=== PATIENT | female | born 1965 | race Two or more races ===

== ENCOUNTER 2017-09-26 15:33 | Inpatient (IN) | payer OTHER ==
[2017-09-26 19:39] VITALS: BMI 38.0
[2017-09-26] MEDS ORDERED: NITROGLYCERIN SL TABS 0.4 MG TAB SUBLINGUAL PRN (20:03)
[2017-09-26] MEDS ORDERED: Acetaminophen-Codeine 300-30mg TAB PO PRN (20:08)
[2017-09-26 20:57] LABS: Creatine Kinase 61 U/L (30-135)
[2017-09-26 21:10] LABS: Creatine Kinase MB 0.6 ng/mL (0.0-2.4); Troponin I <0.012 ng/mL (0.000-0.034)
[2017-09-26] MEDS: PANTOPRAZOLE 40 MG/10 ML VIAL IVP SCH (21:20)
[2017-09-26] MEDS: Acetaminophen-Codeine 300-30mg TAB PO PRN (21:25)
[2017-09-27 03:09] LABS: Cholesterol 173 mg/dL (<200); HDL Cholesterol 32 mg/dL (40-60); LDL Cholesterol,Calculated 122 mg/dL (0-99); Triglycerides 95 mg/dL (<150)
[2017-09-27 03:27] LABS: Creatine Kinase MB 0.7 ng/mL (0.0-2.4); Troponin I 0.026 ng/mL (0.000-0.034)
--- NOTE | 2017-09-27 08:40 | P.CRDCN ---
History of Present Illness Consult date: 09/27/17 Chief complaint: Chest pain History of present illness: This is a pleasant 52-year-old female patient with no history of coronary artery disease or diabetes or hypertension or dyslipidemia but history of stroke at young age [place] to have left sided weakness, was transferred from [facility] to [facility] for further evaluation of chest discomfort. The patient was in her usual state of health when she was sitting in the car when she started experiencing discomfort in the chest with some radiation to the back. She described the discomfort as a stabbing kind of discomfort. It did also radiated to her neck and to her jaw. The patient states clearly that the discomfort is worse once she take a deep breath. Also she stated that the discomfort sometimes precipitated by moving the neck right and left. No associated symptoms of shortness of breath, sweating, nausea or vomiting, dizziness or lightheadedness or syncope. She presented to the emergency room went [facility] where she was given nitroglycerin without improvement in her symptoms but with significant drop in the blood pressure. The patient EKG showed sinus rhythm with intraventricular conduction delay. The EKG also consistent with LVH. 2 sets of cardiac enzymes were obtained and came in to be unremarkable. I don't have a chest x-ray on her. The d-dimer came in to be elevated and the computed tomography scan of the chest showed no PE. The patient does not have any coronary artery disease, diabetes, hypertension, or dyslipidemia. No major cardiovascular surgery. She does not smoke or drink alcohol. She has no family history of coronary artery disease. 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" History of Any Multi-Drug Resistant Organisms: None Reported Past Surgical History: Hysterectomy, Tubal Ligation Additional Past Surgical History / Comment(s): eye surgery Past Anesthesia/Blood Transfusion Reactions: No Reported Reaction Past Psychological History: Depression Smoking Status: Never smoker Past Alcohol Use History: None Reported Past Drug Use History: None Reported Medications and Allergies Home Medications Medication Instructions Recorded Confirmed Type Acetaminophen-Codeine 300-30mg 30 mg PO BID PRN 09/26/17 09/26/17 History [Tylenol w/codeine #3] Escitalopram [Lexapro] 10 mg PO DAILY 09/26/17 09/26/17 History Esomeprazole Magnesium [NexIUM] 40 mg PO DAILY 09/26/17 09/26/17 History Ibuprofen [Motrin] 800 mg PO Q6HR PRN 09/26/17 09/26/17 History Levothyroxine Sodium [Synthroid] 50 mcg PO DAILY 09/26/17 09/26/17 History Allergies Allergy/AdvReac Type Severity Reaction Status Date / Time Penicillins AdvReac Unknown Verified 09/26/17 19:40 Physical Exam Vitals: Vital Signs Temp Pulse Resp BP Pulse Ox 09/27/17 03:24 73 19 09/27/17 03:23 98.7 F 73 19 118/77 96 09/26/17 23:35 84 16 09/26/17 23:33 98.8 F 84 16 111/57 96 09/26/17 20:00 98.9 F 80 17 113/78 95 09/26/17 19:28 98.9 F 80 17 113/78 95 Intake and Output 09/26/17 09/27/17 09/27/17 22:59 06:59 14:59 Other: Voiding Method Toilet Toilet # Voids 1 1 Weight 106.8 kg 100 kg - Constitutional General appearance: no acute distress - Respiratory Respiratory: bilateral: CTA - Cardiovascular Rhythm: regular Heart sounds: normal: S1, S2 Results Cardiac Enzymes 09/26/17 09/27/17 Range/Units 20:29 02:32 CK-MB (CK-2) 0.6 0.7 (0.0-2.4) ng/mL Troponin I <0.012 0.026 (0.000-0.034) ng/mL Lipids 09/27/17 Range/Units 02:32 Triglycerides 95 (<150) mg/dL Cholesterol 173 (<200) mg/dL HDL Cholesterol 32 L (40-60) mg/dL Current Medications Generic Name Dose Route Start Last Admin Trade Name Freq PRN Reason Stop Dose Admin Acetaminophen/Codeine Phosphate 1 each 09/26/17 21:22 09/26/17 21:25 Tylenol #3 PO 1 each Q12HR PRN Administration Pain Morphine Sulfate 4 mg 09/26/17 20:03 Morphine Sulfate (Inj) IV Q5M PRN MOD-SEV CHEST PAIN Nitroglycerin 0.4 mg 09/26/17 20:03 Nitrostat SUBLINGUAL Q5M PRN Chest Pain Pantoprazole Sodium 40 mg 09/26/17 20:15 09/26/17 21:20 Protonix IVP 40 mg DAILY ANAHI Administration Intake and Output 09/26/17 09/27/17 09/27/17 22:59 06:59 14:59 Other: Voiding Method Toilet Toilet # Voids 1 1 Weight 106.8 kg 100 kg Assessment and Plan Assessment: Assessment #1 atypical/pleuritic chest discomfort. #2 history of stroke in the past causing left sided weakness Plan #1 PE was ruled out by a computed tomography scan of the chest. #2 pericarditis to be ruled out as well. I will obtain an echocardiogram to assess for pericardial effusion giving the nature of the pain which is pleuritic #3 also primary problem like degenerative disease in the neck could be responsible for the pain. I will obtain the x-ray #4 the patient was ruled out for acute coronary event as well #5 if the workup came in to be negative she might benefit from a stress test either as an inpatient or an outpatient. Thank you for allowing us participate in her care and we will continue following up with her
[2017-09-27] MEDS: PANTOPRAZOLE 40 MG/10 ML VIAL IVP SCH (08:54)
[2017-09-27 09:16] LABS: Creatine Kinase MB 0.6 ng/mL (0.0-2.4); Troponin I 0.013 ng/mL (0.000-0.034)
[2017-09-27] MEDS ORDERED: DILTIAZEM DRIP BOLUS FROM BAG 1 MG SOLN IV ONE (09:22)
[2017-09-27] MEDS ORDERED: DILTIAZEM 50 MG in SODIUM CHLORIDE 0.9% 40 ML IV SCH (09:30)
--- NOTE | 2017-09-27 11:26 | P.HPIM ---
History of Present Illness H&P Date: 09/27/17 Chief Complaint: Chest pain Patient is a 52-year-old female with a known history of with a known history of hypothyroidism, anxiety/depression, neuropathy, hypertension, GERD and history of degenerative disc disease was initially presented to [facility] with complaints of midsternal chest pain shooting sharp pain radiating to the neck jar and to the back. Patient says that she's not been feeling very weak for the last 2 days prior to admission and has been more sleepy. She felt some nausea but no episodes of vomiting. No headache or dizziness or lightheadedness. Chest pain gets worse when she takes deep breath. EKG showed sinus rhythm with frequent PVCs. Poor R wave progression anterior leads. QTC 411. No ST elevation or depression. Troponin less than 0.017 D-dimer slightly elevated at 1 CT angiogram of the chest showed no PE. Elevated right hemidiaphragm with right base atelectasis. Atelectasis and some degree of patchy infiltrate noted involving the left lower lobe and lingula area and paraesophageal hernia. x-ray showed no acute abnormality UA negative. Sodium 136 potassium 3.3 BNP 26 creatinine 1.2 bilirubin 1.3 BNP 1242 Patient went to atrial fibrillation with rapid return in this morning and was started on Cardizem drip currently. All other laboratory data from [facility] was reviewed. Review of Systems Constitutional: Patient denies any fever or chills . No generalized weakness or weight loss. Abdomen: Patient denied nausea vomiting and diarrhea and abdominal pain. Cardiovascular: Patient does have pleuritic chest pain. No palpitations. No leg swelling.. Respiratory: patient denied any cough is from production. No shortness of breath Neurologic: Patient denied any numbness or tingling headache. Musculoskeletal: Patient denies any complaints of joint swelling or deformity. Skin: Negative Psychiatric: Negative Endocrine: No heat or cold intolerance. No recent weight gain. Genitourinary: No dysuria or hematuria. 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" History of Any Multi-Drug Resistant Organisms: None Reported Past Surgical History: Hysterectomy, Tubal Ligation Additional Past Surgical History / Comment(s): eye surgery Past Anesthesia/Blood Transfusion Reactions: No Reported Reaction Past Psychological History: Depression Smoking Status: Never smoker Past Alcohol Use History: None Reported Past Drug Use History: None Reported Medications and Allergies Home Medications Medication Instructions Recorded Confirmed Type Acetaminophen-Codeine 300-30mg 30 mg PO BID PRN 09/26/17 09/26/17 History [Tylenol w/codeine #3] Escitalopram [Lexapro] 10 mg PO DAILY 09/26/17 09/26/17 History Esomeprazole Magnesium [NexIUM] 40 mg PO DAILY 09/26/17 09/26/17 History Ibuprofen [Motrin] 800 mg PO Q6HR PRN 09/26/17 09/26/17 History Levothyroxine Sodium [Synthroid] 50 mcg PO DAILY 09/26/17 09/26/17 History Allergies Allergy/AdvReac Type Severity Reaction Status Date / Time Penicillins AdvReac Unknown Verified 09/26/17 19:40 Physical Exam Vitals: Vital Signs Temp Pulse Resp BP Pulse Ox 09/27/17 08:00 98.8 F 86 18 134/80 09/27/17 03:24 73 19 09/27/17 03:23 98.7 F 73 19 118/77 96 09/26/17 23:35 84 16 09/26/17 23:33 98.8 F 84 16 111/57 96 09/26/17 20:00 98.9 F 80 17 113/78 95 09/26/17 19:28 98.9 F 80 17 113/78 95 Intake and Output 09/26/17 09/27/17 09/27/17 22:59 06:59 14:59 Other: Voiding Method Toilet Toilet Toilet # Voids 1 1 Weight 106.8 kg 100 kg PHYSICAL EXAMINATION: Patient is lying in the bed comfortably, no acute distress, awake alert and oriented.. HEENT: Normocephalic. Neck is supple. Pupils reactive. Nostrils clear. Oral cavity is moist. Ears reveal no drainage. Neck reveals no JVD, carotid bruits, or thyromegaly. CHEST EXAMINATION: Trachea is central. Symmetrical expansion. Bibasilar diminished air entry. Lung armijo clear to auscultation and percussion. CARDIAC: Normal S1, S2 with no gallops. No murmurs ABDOMEN: Soft. Bowel sounds normal. No organomegaly. No abdominal bruits. Extremities: reveal no edema. No clubbing or cyanosis Neurologically awake, alert, oriented x3 with well-coordinated movements. No focal deficits noted Skin: No rash or skin lesions. Psychiatric: Coperative. Nonsuicidal Musculoskeletal: No joint swelling or deformity. Normal range of motion. Results Labs: Abnormal Lab Results - Last 24 Hours (Table) 09/27/17 Range/Units 02:32 LDL Cholesterol, Calc 122 H (0-99) mg/dL HDL Cholesterol 32 L (40-60) mg/dL Thrombosis Risk Factor Assmnt - Choose All That Apply Any of the Below Risk Factors Present?: Yes Each Factor Represents 1 point: Age 41-60 years, Obesity (BMI >25) Other Risk Factors: No Other congenital or acquired thrombophilia - If yes, enter type in comment: No Thrombosis Risk Factor Assessment Total Risk Factor Score: 2 Thrombosis Risk Factor Assessment Level: Low Risk Assessment and Plan Assessment: Pleuritic chest pain. pulmonary embolism ruled out. 2-D echocardiogram was ordered for possible pericarditis Atrial fibrillation with rapid ventricular rate. New-onset. Right basilar atelectasis and atelectasis and some degree of patchy infiltrate involving the left lower lobe and lingula as per CT chest Hypothyroidism. Noncompliance with medications. We will check TSH and free T4 level History of CVA with left-sided weakness Hypertension. Controlled Anxiety/depression Peripheral neuropathy. Nondiabetic GERD cervical degenerative disc disease Plan: Patient will be continued on telemetry monitoring. Patient was started on Cardizem drip. Serial troponins negative. 2-D echocardiogram was ordered to assess for LV function as well as pericarditis. We'll check TSH and free T4 level. cardiology is following. If the workup is negative patient will need stress test as an inpatient or outpatient. Incentive spirometry. Continue to follow closely and further recommendations based on the clinical course. Time with Patient: Greater than 30
[2017-09-27] MEDS: METOPROLOL TARTRATE 25 MG TAB PO SCH ×2 (16:40→20:29)
--- NOTE | 2017-09-27 20:06 | XR ---
EXAMINATION TYPE: XR chest 1V DATE OF EXAM: 09/27/2017 COMPARISON: NONE HISTORY: 52-year-old female with chest pain TECHNIQUE: Single frontal view of the chest is obtained. FINDINGS: Low lung volumes with crowded vascular markings. Strandy bibasilar densities. Possible trace left eff usion. Visualized upper lungs are clear. Heart likely upper limits of normal in size. IMPRESSION: Exam limited due to low lung volumes. Bibasilar densities likely areas of atelectasis. Trace left eff usion or developing infiltrate difficult to exclude at this time. Consider repeat inspiratory view.
--- NOTE | 2017-09-27 20:08 | XR ---
EXAMINATION TYPE: XR cervical spine DATE OF EXAM: 09/27/2017 COMPARISON: NONE HISTORY: 52-year-old female with neck pain TECHNIQUE: 3 views FINDINGS: No predental space widening or prevertebral soft tissue swelling. Moderate spondylotic change C5-C7 l evels with endplate spurring. Scattered facet and uncovertebral joint degenerative change. Degenerati ve joint space narrowing along the C1-C2 left lateral masses. Alignment is maintained. IMPRESSION: Moderate spondylotic changes especially from C5 through C7 levels. Additional degenerative changes al marge the C1-C2 left lateral masses. No malalignment.
[2017-09-27] MEDS: MORPHINE SULFATE 2 MG/ML SYRINGE IV PRN (21:05)
[2017-09-28] MEDS: MORPHINE SULFATE 2 MG/ML SYRINGE IV PRN (05:13)
[2017-09-28 06:31] LABS: Basophils % (A) 1 %; Eosinophils # (A) 0.2 k/uL (0-0.7); Eosinophils % (A) 3 %; HCT 37.2 % (34.0-46.0); HGB 12.6 gm/dL (11.4-16.0); Lymphocytes # (A) 0.9 k/uL (1.0-4.8); Lymphocytes % (A) 17 %; MCH 30.1 pg (25.0-35.0); MCHC 33.9 g/dL (31.0-37.0); MCV 88.8 fL (80.0-100.0); Monocytes # (A) 0.4 k/uL (0-1.0); Monocytes % (A) 8 %; Neutrophils # (A) 3.7 k/uL (1.3-7.7); Neutrophils % (A) 69 %; Platelet Count 189 k/uL (150-450); RBC 4.19 m/uL (3.80-5.40); RDW 13.7 % (11.5-15.5); WBC 5.4 k/uL (3.8-10.6)
[2017-09-28 06:36] LABS: Anion Gap 9 mmol/L; Blood Urea Nitrogen 26 mg/dL (7-17); Calcium 8.5 mg/dL (8.4-10.2); Carbon Dioxide 27 mmol/L (22-30); Chloride 99 mmol/L (98-107); Glucose 106 mg/dL (74-99); Potassium 3.7 mmol/L (3.5-5.1); Sodium 135 mmol/L (137-145)
[2017-09-28] MEDS: PANTOPRAZOLE 40 MG TABLET PO SCH (06:54)
--- NOTE | 2017-09-28 11:12 | P.PN ---
Subjective Progress Note Date: 09/28/17 This is a pleasant 52-year-old female with known history of coronary artery disease, no diabetes, no hypertension, no hyperlipidemia, she does have history of stroke at a young age with some mild left-sided weakness. She was initially transferred from [facility] here with symptoms of chest discomfort. She describes her discomfort as a sharp stabbing pain, gets significantly worse upon taking a deep breath. EKG showed a normal sinus rhythm with intraventricular conduction delay and LVH strain pattern. Cardiac enzymes and troponins were negative. D-dimer was also found to be elevated and the CT of the chest was negative for pulmonary embolism. An echocardiogram with Doppler study was performed this morning which is yet pending. At the time of my examination this morning, patient is complaining of generalized aches and pains in her legs arms, complains only of sharp chest pain when she takes a very deep breath. She is also running low-grade temperatures of 100.1 this morning. We will review her echocardiogram with Doppler study, if there is no evidence of effusion to suggest pericarditis we would recommend a stress test however in view of the fact the patient currently is running fevers we would recommend this be performed as an outpatient. This was also explained to the patient in detail this morning. Objective - Vital Signs Vital signs: Vital Signs Temp 99.4 F 09/28/17 08:00 Pulse 78 09/28/17 08:00 Resp 16 09/28/17 08:00 BP 113/61 09/28/17 08:00 Pulse Ox 91 L 09/28/17 08:00 Intake & Output 09/27/17 09/28/17 09/28/17 18:59 06:59 18:59 Intake Total 473 300 240 Output Total 200 Balance 473 100 240 Weight 100.607 kg Intake: Oral 473 300 240 Output: Urine 200 Other: Voiding Method Toilet Toilet # Voids 1 200 - Exam PHYSICAL EXAMINATION: GENERAL: 52-year-old female generally complaining of aches and pains in legs and arms this morning HEENT: Head is atraumatic, normocephalic. Pupils equal, round. Sclera anicteric. Conjunctiva are clear. Mucous membranes of the mouth are moist. Neck is supple. There is no elevated jugular venous pressure.] No carotid bruit is heard. HEART EXAMINATION: Heart S1, S2 normal. No murmur or gallop heard. CHEST EXAMINATION: Lungs are clear to auscultation and precussion. Positive chest wall tenderness is noted on palpation and with deep breathing.] ABDOMEN: [Soft, nontender. Bowel sounds are heard. No organomegaly noted] EXTREMITIES:[2+ peripheral pulses with no evidence of peripheral edema and no calf tenderness noted] NEUROLOGIC [atient is awake, alert and oriented ?-3.] . - Labs CBC & Chem 7: 09/28/17 05:42 09/28/17 05:42 Labs: Abnormal Lab Results - Last 24 Hours (Table) 09/28/17 09/28/17 Range/Units 05:42 05:42 Lymphocytes # 0.9 L (1.0-4.8) k/uL Sodium 135 L (137-145) mmol/L BUN 26 H (7-17) mg/dL Glucose 106 H (74-99) mg/dL Assessment and Plan Plan: Assessment and plan #1 atypical chest pain, troponins negative 3. EKG does not show any significant changes. CTA of the chest negative for pulmonary embolism #2 history of stroke #3 fever with generalized body aches Plan We will review the echocardiogram with Doppler study. If there is no evidence of effusion, we would recommend the patient undergo stress testing as an outpatient. DNP note has been reviewed, I agree with a documented findings and plan of care. Patient was seen and examined.
[2017-09-28] MEDS: METOPROLOL TARTRATE 25 MG TAB PO SCH ×2 (12:28→20:23)
[2017-09-28] MEDS: Acetaminophen-Codeine 300-30mg TAB PO PRN (12:38)
[2017-09-28] MEDS ORDERED: LEVOFLOXACIN 500MG-D5W PMX 500 MG in DEXTROSE/WATER 1 100ML.BAG IVPB SCH (15:00)
[2017-09-28] MEDS: HEPARIN SODIUM,PORCINE 5,000 UNIT/ML 1 ML VIAL SQ SCH ×2 (16:05→23:22)
--- NOTE | 2017-09-28 17:22 | ECHOF ---
Referral Reason:cp MEASUREMENTS -------- HEIGHT: 167.6 cm WEIGHT: 100.2 kg BP: 120/3 IVSd: 1.3 cm (0.6 - 1.1) LVIDd: 2.9 cm (3.9 - 5.3) LVPWd: 1.3 cm (0.6 - 1.1) IVSs: 1.7 cm LVIDs: 1.9 cm LVPWs: 1.7 cm LA Diam: 2.6 cm (2.7 - 3.8) RVIDd: 2.8 cm (< 3.3) LAESV Index (A-L): 16.46 ml/m Ao Diam: 3.2 cm (2.0 - 3.7) AV Cusp: 2.0 cm (1.5 - 2.6) EPSS: 0.6 cm MV E Kentrell: 0.81 m/s MV DecT: 211 ms MV A Kentrell: 0.68 m/s MV E/A Ratio: 1.20 RAP: 5.00 mmHg RVSP: 26.36 mmHg MV EF SLOPE: 57.13 mm/s (70 - 150) MV EXCURSION: 14.88 mm (> 18.000) FINDINGS -------- Sinus rhythm. This was a technically adequate study. The left ventricular size is normal. There is mild concentric left ventricular hypertrophy. Overa ll left ventricular systolic function is normal with, an EF between 55 - 60 %. The right ventricle is normal in size. Normal LA size by volume 22+/-6 ml/m2. The right atrium is normal in size. There is mild aortic valve sclerosis. Mild mitral annular calcification present. There is trace to mild mitral regurgitation. Mild tricuspid regurgitation present. Right ventricular systolic pressure is normal at < 35 mmHg. Trace/mild (physiologic) pulmonic regurgitation. The aortic root size is normal. IVC Not well visulized. There is no pericardial effusion. CONCLUSIONS -------- 1. Sinus rhythm. 2. This was a technically adequate study. 3. The left ventricular size is normal. 4. There is mild concentric left ventricular hypertrophy. 5. Overall left ventricular systolic function is normal with, an EF between 55 - 60 %. 6. The right ventricle is normal in size. 7. Normal LA size by volume 22+/-6 ml/m2. 8. The right atrium is normal in size. 9. There is mild aortic valve sclerosis. 10. Mild mitral annular calcification present. 11. There is trace to mild mitral regurgitation. 12. Mild tricuspid regurgitation present. 13. Right ventricular systolic pressure is normal at < 35 mmHg. 14. Trace/mild (physiologic) pulmonic regurgitation. 15. The aortic root size is normal. 16. IVC Not well visulized. 17. There is no pericardial effusion. SERVICE LINE COORDINATOR: Autumn Samuel RDCS
[2017-09-28] MEDS ORDERED: ACETAMINOPHEN TAB 500 MG TAB PO STA (20:32)
--- NOTE | 2017-09-28 22:24 | P.PN ---
Subjective Progress Note Date: 09/28/17 Principal diagnosis: Pleuritic chest pain and pneumonia Patient is a 52-year-old female with a known history of with a known history of hypothyroidism, anxiety/depression, neuropathy, hypertension, GERD and history of degenerative disc disease was initially presented to [facility] with complaints of midsternal chest pain shooting sharp pain radiating to the neck jar and to the back. Patient says that she's not been feeling very weak for the last 2 days prior to admission and has been more sleepy. She felt some nausea but no episodes of vomiting. No headache or dizziness or lightheadedness. Chest pain gets worse when she takes deep breath. EKG showed sinus rhythm with frequent PVCs. Poor R wave progression anterior leads. QTC 411. No ST elevation or depression. Troponin less than 0.017 D-dimer slightly elevated at 1 CT angiogram of the chest showed no PE. Elevated right hemidiaphragm with right base atelectasis. Atelectasis and some degree of patchy infiltrate noted involving the left lower lobe and lingula area and paraesophageal hernia. x-ray showed no acute abnormality UA negative. Sodium 136 potassium 3.3 BNP 26 creatinine 1.2 bilirubin 1.3 BNP 1242 Patient had brief episode of rapid irregular rhythm. Patient was on Cardizem drip and is currently maintaining sinus rhythm. 09/28/2017 Patient is still complaining of shortness of breath and developed fever last night. Still having pleuritic chest pain with deep breathing. Patient was started on antibiotics for possible left lower lobe pneumonia. Repeat chest x- ray showed low lung volumes. Bibasilar densities likely areas of atelectasis. trace left pleural effusion or developing an infiltrate difficult to exclude at this time. 2-D echo showed normal ejection fraction. Cardiology is on board. No nausea vomiting or abdominal pain. Discussed with a family at bedside in detail. All other review of systems negative except the above Current medications reviewed Active Medications Generic Name Dose Route Start Last Admin Trade Name Freq PRN Reason Stop Dose Admin Acetaminophen/Codeine Phosphate 1 each 09/26/17 21:22 09/28/17 12:38 Tylenol #3 PO 1 each Q12HR PRN Administration Pain Heparin Sodium (Porcine) 5,000 unit 09/28/17 16:00 09/28/17 16:05 Heparin SQ 5,000 unit Q8HR ANAHI Administration Levofloxacin 500 mg/ IV 100 mls @ 100 mls/hr 09/28/17 15:00 09/28/17 16:04 Solution IVPB 100 mls/hr Q24H ANAHI Administration Sodium Chloride 1,000 mls @ 75 mls/hr 09/28/17 22:00 Saline 0.9% IV .[id number] [facility] Ketorolac Tromethamine 30 mg 09/29/17 00:00 Toradol IVP 10/02/17 22:02 Q6HR ANAHI Metoprolol Tartrate 25 mg 09/27/17 13:30 09/28/17 20:23 Lopressor PO 25 mg BID ANAHI Administration Nitroglycerin 0.4 mg 09/26/17 20:03 Nitrostat SUBLINGUAL Q5M PRN Chest Pain Pantoprazole Sodium 40 mg 09/28/17 07:30 09/28/17 06:54 Protonix PO 40 mg [id number] ANAHI Administration Objective - Vital Signs Vital signs: Vital Signs Temp 102.1 F H 09/28/17 20:00 Pulse 72 09/28/17 20:00 Resp 17 09/28/17 20:00 BP 133/78 09/28/17 20:00 Pulse Ox 92 L 09/28/17 20:00 Intake & Output 09/28/17 09/28/17 09/29/17 06:59 18:59 06:59 Intake Total 300 600 200 Output Total 200 900 100 Balance 100 -300 100 Weight 100.607 kg Intake: Oral 300 600 Blood Product 200 Output: Urine 200 900 100 Other: Voiding Method Toilet Toilet Toilet # Voids 200 - Exam PHYSICAL EXAMINATION: Patient is lying in the bed comfortably, mild distress, awake alert and oriented.. HEENT: Normocephalic. Neck is supple. Pupils reactive. Nostrils clear. Oral cavity is moist. Ears reveal no drainage. Neck reveals no JVD, carotid bruits, or thyromegaly. CHEST EXAMINATION: Trachea is central. Symmetrical expansion. Left basilar crackles and diminished breath sounds.. CARDIAC: Normal S1, S2 with no gallops. No murmurs ABDOMEN: Soft. Bowel sounds normal. No organomegaly. No abdominal bruits. Extremities: reveal no edema. No clubbing or cyanosis Neurologically awake, alert, oriented x3 with well-coordinated movements. Left- sided weakness. No focal deficits noted Skin: No rash or skin lesions. Psychiatric: Cooperative. Nonsuicidal Musculoskeletal: No joint swelling or deformity. Normal range of motion. - Labs CBC & Chem 7: 09/28/17 05:42 09/28/17 05:42 Labs: Abnormal Lab Results - Last 24 Hours (Table) 09/28/17 09/28/17 Range/Units 05:42 05:42 Lymphocytes # 0.9 L (1.0-4.8) k/uL Sodium 135 L (137-145) mmol/L BUN 26 H (7-17) mg/dL Glucose 106 H (74-99) mg/dL Assessment and Plan Assessment: Pleuritic chest pain. Likely due to pneumonia. pulmonary embolism ruled out. 2-D echocardiogram showed normal EF and no evidence of pericarditis. Right basilar atelectasis and atelectasis and some degree of patchy infiltrate involving the left lower lobe and lingula as per CT chest. Started on antibiotics Fever. Influenza negative Hypothyroidism. Noncompliance with medications. We will check TSH and free T4 level History of CVA with left-sided weakness Hypertension. Controlled Anxiety/depression Peripheral neuropathy. Nondiabetic GERD cervical degenerative disc disease Plan: Patient was started on antibiotics in the form of levofloxacin. Breathing treatments as needed. Patient will be continued on telemetry monitoring. Serial troponins negative. 2-D echocardiogram showed normal ejection fraction and no evidence of pericarditis. We'll check TSH and free T4 level. cardiology is following. If the workup is negative patient will need stress test as an inpatient or outpatient. Incentive spirometry. Continue to follow closely and further recommendations based on the clinical course. Time with Patient: Greater than 30
[2017-09-28] MEDS: SODIUM CHLORIDE 0.9% 1,000 ML IV SCH (22:25)
[2017-09-28] MEDS: KETOROLAC 30 MG/ML 1 ML VIAL IVP SCH (23:24)
[2017-09-29] MEDS: KETOROLAC 30 MG/ML 1 ML VIAL IVP SCH ×3 (04:01→16:38)
[2017-09-29 06:12] LABS: Basophils # (A) 0.1 k/uL (0-0.2); Basophils % (A) 1 %; Eosinophils # (A) 0.1 k/uL (0-0.7); Eosinophils % (A) 3 %; HCT 37.4 % (34.0-46.0); HGB 12.7 gm/dL (11.4-16.0); Lymphocytes # (A) 0.9 k/uL (1.0-4.8); Lymphocytes % (A) 24 %; MCH 30.5 pg (25.0-35.0); MCV 89.6 fL (80.0-100.0); Mean Platelet Volume 6.5; Monocytes # (A) 0.3 k/uL (0-1.0); Monocytes % (A) 9 %; Neutrophils # (A) 2.3 k/uL (1.3-7.7); Neutrophils % (A) 61 %; Platelet Count 179 k/uL (150-450); RBC 4.17 m/uL (3.80-5.40); RDW 14.1 % (11.5-15.5); WBC 3.7 k/uL (3.8-10.6)
[2017-09-29 06:24] LABS: Calcium 8.2 mg/dL (8.4-10.2); Potassium 3.8 mmol/L (3.5-5.1)
[2017-09-29] MEDS: PANTOPRAZOLE 40 MG TABLET PO SCH (06:40)
[2017-09-29] MEDS: METOPROLOL TARTRATE 25 MG TAB PO SCH ×2 (08:10→19:59)
[2017-09-29] MEDS: HEPARIN SODIUM,PORCINE 5,000 UNIT/ML 1 ML VIAL SQ SCH ×2 (08:10→16:33)
--- NOTE | 2017-09-29 08:19 | XR ---
EXAMINATION TYPE: XR chest 1V DATE OF EXAM: 09/29/2017 COMPARISON: Prior chest x-ray 09/27/2017 HISTORY: Shortness of breath, chest pain TECHNIQUE: Single frontal view of the chest is obtained. FINDINGS: Patient is rotated and there are overlying cardiac leads. Patchy basilar density persists. No evident pneumothorax. Heart size is stable. IMPRESSION: Suspect basilar atelectasis. Difficult to exclude small effusion. Follow-up PA and later al chest x-ray recommended.
[2017-09-29] MEDS: LEVOFLOXACIN 500 MG TAB PO SCH (16:33)
[2017-09-29] MEDS: SODIUM CHLORIDE 0.9% 1,000 ML IV SCH (19:59)
[2017-09-29] MEDS ORDERED: HEPARIN SODIUM,PORCINE 5,000 UNIT/ML 1 ML VIAL ONE (23:30)
[2017-09-29] MEDS ORDERED: KETOROLAC 30 MG/ML 1 ML VIAL ONE (23:30)
[2017-09-30] MEDS ORDERED: HYDROcodone/APAP 7.5-325MG 1 EACH TAB ONE (01:30)
[2017-09-30] MEDS ORDERED: methylPREDNISolone SOD SUCCI 40 MG/ML 1 ML VIAL ONE (01:30)
[2017-09-30] MEDS: HEPARIN SODIUM,PORCINE 5,000 UNIT/ML 1 ML VIAL SQ SCH ×4 (05:22→22:32)
[2017-09-30] MEDS: SODIUM CHLORIDE 0.9% 1,000 ML IV SCH (05:22)
[2017-09-30] MEDS: KETOROLAC 30 MG/ML 1 ML VIAL IVP SCH ×5 (05:22→18:01)
[2017-09-30] MEDS: PANTOPRAZOLE 40 MG TABLET PO SCH (06:23)
[2017-09-30] MEDS: METOPROLOL TARTRATE 25 MG TAB PO SCH ×2 (07:59→19:33)
[2017-09-30] MEDS: LEVOFLOXACIN 500 MG TAB PO SCH (08:00)
[2017-09-30] MEDS ORDERED: NON-FORMULARY DRUG (Esomeprazole Magnesium [Nexium] 40 MG) PO SCH (12:45)
[2017-09-30] MEDS: LEVOTHYROXINE 50 MCG TAB PO SCH (16:37)
[2017-09-30] MEDS: ESCITALOPRAM 10 MG TAB PO SCH (16:37)
[2017-10-01] MEDS: Acetaminophen-Codeine 300-30mg TAB PO PRN (04:17)
[2017-10-01] MEDS: LEVOTHYROXINE 50 MCG TAB PO SCH (06:22)
[2017-10-01] MEDS: PANTOPRAZOLE 40 MG TABLET PO SCH (06:22)
[2017-10-01 08:41] VITALS: RESP 18
[2017-10-01] MEDS: METOPROLOL TARTRATE 25 MG TAB PO SCH (08:42)
[2017-10-01] MEDS: ESCITALOPRAM 10 MG TAB PO SCH (08:42)
[2017-10-01] MEDS: HEPARIN SODIUM,PORCINE 5,000 UNIT/ML 1 ML VIAL SQ SCH ×2 (08:42→16:07)
[2017-10-01] MEDS ORDERED: ASPIRIN 81 MG PO SCH (09:00)
[2017-10-01] MEDS: KETOROLAC 30 MG/ML 1 ML VIAL IVP SCH ×3 (10:15→16:43)
--- NOTE | 2017-10-01 10:48 | P.PN ---
Subjective Progress Note Date: 09/29/17 Principal diagnosis: Pleuritic chest pain and pneumonia Patient is a 52-year-old female with a known history of with a known history of hypothyroidism, anxiety/depression, neuropathy, hypertension, GERD and history of degenerative disc disease was initially presented to [facility] with complaints of midsternal chest pain shooting sharp pain radiating to the neck jar and to the back. Patient says that she's not been feeling very weak for the last 2 days prior to admission and has been more sleepy. She felt some nausea but no episodes of vomiting. No headache or dizziness or lightheadedness. Chest pain gets worse when she takes deep breath. EKG showed sinus rhythm with frequent PVCs. Poor R wave progression anterior leads. QTC 411. No ST elevation or depression. Troponin less than 0.017 D-dimer slightly elevated at 1 CT angiogram of the chest showed no PE. Elevated right hemidiaphragm with right base atelectasis. Atelectasis and some degree of patchy infiltrate noted involving the left lower lobe and lingula area and paraesophageal hernia. x-ray showed no acute abnormality UA negative. Sodium 136 potassium 3.3 BNP 26 creatinine 1.2 bilirubin 1.3 BNP 1242 Patient had brief episode of rapid irregular rhythm. Patient was on Cardizem drip and is currently maintaining sinus rhythm. 09/28/2017 Patient is still complaining of shortness of breath and developed fever last night. Still having pleuritic chest pain with deep breathing. Patient was started on antibiotics for possible left lower lobe pneumonia. Repeat chest x- ray showed low lung volumes. Bibasilar densities likely areas of atelectasis. trace left pleural effusion or developing an infiltrate difficult to exclude at this time. 2-D echo showed normal ejection fraction. Cardiology is on board. No nausea vomiting or abdominal pain. 710 2017 Patient says that she feels better but she still having fever last night. Pleuritic chest pain improving. Patient will be continued on incentive spirometry but she does have poor effort. Repeat chest x-ray showed suspected basilar atelectasis. Difficult to exclude small effusion. Follow-up PA and lateral chest x-ray recommended. No nausea vomiting or abdominal pain. Tolerating oral diet. No complaints of constipation. Discussed with a family at bedside in detail. All other review of systems negative except the above Current medications reviewed Active Medications Generic Name Dose Route Start Last Admin Trade Name Karma PRN Reason Stop Dose Admin Acetaminophen/Codeine Phosphate 1 each 09/26/17 21:22 09/28/17 12:38 Tylenol #3 PO 1 each Q12HR PRN Administration Pain Heparin Sodium (Porcine) 5,000 unit 09/28/17 16:00 09/28/17 16:05 Heparin SQ 5,000 unit Q8HR ANAHI Administration Levofloxacin 500 mg/ IV 100 mls @ 100 mls/hr 09/28/17 15:00 09/28/17 16:04 Solution IVPB 100 mls/hr Q24H ANAHI Administration Sodium Chloride 1,000 mls @ 75 mls/hr 09/28/17 22:00 Saline 0.9% IV .[id number] [facility] Ketorolac Tromethamine 30 mg 09/29/17 00:00 Toradol IVP 10/02/17 22:02 Q6HR [facility] Metoprolol Tartrate 25 mg 09/27/17 13:30 09/28/17 20:23 Lopressor PO 25 mg BID [facility] Administration Nitroglycerin 0.4 mg 09/26/17 20:03 Nitrostat SUBLINGUAL Q5M PRN Chest Pain Pantoprazole Sodium 40 mg 09/28/17 07:30 09/28/17 06:54 Protonix PO 40 mg [id number] [facility] Administration Objective - Vital Signs Vital signs: Vital Signs Temp 98.5 F 09/29/17 20:00 Pulse 70 09/29/17 20:00 Resp 19 09/29/17 20:00 BP 121/77 09/29/17 20:00 Pulse Ox 94 L 09/29/17 20:00 Intake & Output 09/29/17 09/29/17 09/30/17 06:59 18:59 06:59 Intake Total 1150 684 Output Total 500 1200 Balance 650 -516 Weight 101 kg Intake: Intake, IV Titration 600 Amount Sodium Chloride 0.9% 1, 600 000 ml @ 75 mls/hr IV . [id number] [facility] Rx#:[id number] Oral 350 684 Blood Product 200 Output: Urine 500 1200 Other: Voiding Method Toilet Toilet Toilet # Voids 2 2 - Exam PHYSICAL EXAMINATION: Patient is lying in the bed comfortably, mild distress, awake alert and oriented.. HEENT: Normocephalic. Neck is supple. Pupils reactive. Nostrils clear. Oral cavity is moist. Ears reveal no drainage. Neck reveals no JVD, carotid bruits, or thyromegaly. CHEST EXAMINATION: Trachea is central. Symmetrical expansion. Bibasilar diminished air entry. No wheezing.. CARDIAC: Normal S1, S2 with no gallops. No murmurs ABDOMEN: Soft. Bowel sounds normal. No organomegaly. No abdominal bruits. Extremities: reveal no edema. No clubbing or cyanosis Neurologically awake, alert, oriented x3 with well-coordinated movements. Left- sided weakness. No focal deficits noted Skin: No rash or skin lesions. Psychiatric: Cooperative. Nonsuicidal Musculoskeletal: No joint swelling or deformity. Normal range of motion. - Labs CBC & Chem 7: 09/29/17 05:50 09/29/17 05:50 Labs: Abnormal Lab Results - Last 24 Hours (Table) 09/29/17 09/29/17 Range/Units 05:50 05:50 WBC 3.7 L (3.8-10.6) k/uL Lymphocytes # 0.9 L (1.0-4.8) k/uL BUN 24 H (7-17) mg/dL Calcium 8.2 L (8.4-10.2) mg/dL Assessment and Plan Assessment: Pleuritic chest pain. Likely due to pneumonia versus atelectasis. pulmonary embolism ruled out. 2-D echocardiogram showed normal EF and no evidence of pericarditis. Right basilar atelectasis and atelectasis and some degree of patchy infiltrate involving the left lower lobe and lingula as per CT chest. Started on antibiotics Fever. Influenza negative Hypothyroidism. Noncompliance with medications. TSH is within normal limits History of CVA with left-sided weakness Hypertension. Controlled Anxiety/depression Peripheral neuropathy. Nondiabetic GERD cervical degenerative disc disease Plan: Patient was started on antibiotics in the form of levofloxacin. Breathing treatments as needed. Patient will be continued on telemetry monitoring. Serial troponins negative. 2-D echocardiogram showed normal ejection fraction and no evidence of pericarditis. TSH within normal limits. cardiology has seen the patient and 2-D echocardiogram showed normal EF and no pericardial effusion. Patient will need stress test as an inpatient or outpatient. Incentive spirometry. Continue to follow closely and further recommendations based on the clinical course. Time with Patient: Greater than 30
--- NOTE | 2017-10-01 10:52 | P.PN ---
Subjective Progress Note Date: 09/30/17 Principal diagnosis: Pleuritic chest pain and pneumonia Patient is a 52-year-old female with a known history of with a known history of hypothyroidism, anxiety/depression, neuropathy, hypertension, GERD and history of degenerative disc disease was initially presented to [facility] with complaints of midsternal chest pain shooting sharp pain radiating to the neck jar and to the back. Patient says that she's not been feeling very weak for the last 2 days prior to admission and has been more sleepy. She felt some nausea but no episodes of vomiting. No headache or dizziness or lightheadedness. Chest pain gets worse when she takes deep breath. EKG showed sinus rhythm with frequent PVCs. Poor R wave progression anterior leads. QTC 411. No ST elevation or depression. Troponin less than 0.017 D-dimer slightly elevated at 1 CT angiogram of the chest showed no PE. Elevated right hemidiaphragm with right base atelectasis. Atelectasis and some degree of patchy infiltrate noted involving the left lower lobe and lingula area and paraesophageal hernia. x-ray showed no acute abnormality UA negative. Sodium 136 potassium 3.3 BNP 26 creatinine 1.2 bilirubin 1.3 BNP 1242 Patient had brief episode of rapid irregular rhythm. Patient was on Cardizem drip and is currently maintaining sinus rhythm. 09/28/2017 Patient is still complaining of shortness of breath and developed fever last night. Still having pleuritic chest pain with deep breathing. Patient was started on antibiotics for possible left lower lobe pneumonia. Repeat chest x- ray showed low lung volumes. Bibasilar densities likely areas of atelectasis. trace left pleural effusion or developing an infiltrate difficult to exclude at this time. 2-D echo showed normal ejection fraction. Cardiology is on board. No nausea vomiting or abdominal pain. 710 2017 Patient says that she feels better but she still having fever last night. Pleuritic chest pain improving. Patient will be continued on incentive spirometry but she does have poor effort. Repeat chest x-ray showed suspected basilar atelectasis. Difficult to exclude small effusion. Follow-up PA and lateral chest x-ray recommended. No nausea vomiting or abdominal pain. Tolerating oral diet. No complaints of constipation. 09/30/2017 Patient is still febrile with T-max 100.3. Otherwise clinically improving. Will be continued on incentive spirometry. Repeat chest x-ray 2 view. Tolerating oral diet and can be discharged if she continues to be afebrile during next 24 hours All other review of systems negative except the above Generic Name Dose Route Start Last Admin Trade Name Karma PRN Reason Stop Dose Admin Acetaminophen/Codeine Phosphate 1 each 09/26/17 21:22 09/28/17 12:38 Tylenol #3 PO 1 each Q12HR PRN Administration Pain Heparin Sodium (Porcine) 5,000 unit 09/28/17 16:00 09/28/17 16:05 Heparin SQ 5,000 unit Q8HR ANAHI Administration Levofloxacin 500 mg/ IV 100 mls @ 100 mls/hr 09/28/17 15:00 09/28/17 16:04 Solution IVPB 100 mls/hr Q24H ANAHI Administration Sodium Chloride 1,000 mls @ 75 mls/hr 09/28/17 22:00 Saline 0.9% IV .[id number] ANA[facility] Ketorolac Tromethamine 30 mg 09/29/17 00:00 Toradol IVP 10/02/17 22:02 Q6HR ANAHI Metoprolol Tartrate 25 mg 09/27/17 13:30 09/28/17 20:23 Lopressor PO 25 mg BID ANAHI Administration Nitroglycerin 0.4 mg 09/26/17 20:03 Nitrostat SUBLINGUAL Q5M PRN Chest Pain Pantoprazole Sodium 40 mg 09/28/17 07:30 09/28/17 06:54 Protonix PO 40 mg AC-BRKFST ANAHI Administration 24 hours. Objective - Vital Signs Vital signs: Vital Signs Temp 98.6 F 09/30/17 19:35 Pulse 75 09/30/17 19:36 Resp 19 09/30/17 19:36 BP 140/91 09/30/17 19:35 Pulse Ox 95 09/30/17 19:35 Intake & Output 09/30/17 09/30/17 10/01/17 06:59 18:59 06:59 Intake Total 222 Balance 222 Weight 101.9 kg Intake: Oral 222 Other: Voiding Method Toilet Toilet Toilet # Voids 2 1 # Bowel Movements 0 - Exam PHYSICAL EXAMINATION: Patient is lying in the bed comfortably, mild distress, awake alert and oriented.. HEENT: Normocephalic. Neck is supple. Pupils reactive. Nostrils clear. Oral cavity is moist. Ears reveal no drainage. Neck reveals no JVD, carotid bruits, or thyromegaly. CHEST EXAMINATION: Trachea is central. Symmetrical expansion. Bibasilar diminished air entry. No wheezing.. CARDIAC: Normal S1, S2 with no gallops. No murmurs ABDOMEN: Soft. Bowel sounds normal. No organomegaly. No abdominal bruits. Extremities: reveal no edema. No clubbing or cyanosis Neurologically awake, alert, oriented x3 with well-coordinated movements. Left- sided weakness. No focal deficits noted Skin: No rash or skin lesions. Psychiatric: Cooperative. Nonsuicidal Musculoskeletal: No joint swelling or deformity. Normal range of motion. - Labs CBC & Chem 7: 09/29/17 05:50 09/29/17 05:50 Labs: Microbiology - Last 24 Hours (Table) 09/28/17 22:46 Blood Culture - Preliminary Blood No Growth after 24 hours Assessment and Plan Assessment: Pleuritic chest pain. Likely due to pneumonia versus atelectasis. pulmonary embolism ruled out. 2-D echocardiogram showed normal EF and no evidence of pericarditis or pericardial effusion. Repeat chest x-ray 2 view. Right basilar atelectasis and atelectasis and some degree of patchy infiltrate involving the left lower lobe and lingula as per CT chest. Started on antibiotics Fever. Influenza negative Hypothyroidism. Noncompliance with medications. TSH is within normal limits History of CVA with left-sided weakness Hypertension. Controlled Anxiety/depression Peripheral neuropathy. Nondiabetic GERD cervical degenerative disc disease Plan: Patient was started on antibiotics in the form of levofloxacin. Breathing treatments as needed. Patient will be continued on telemetry monitoring. Serial troponins negative. 2-D echocardiogram showed normal ejection fraction and no evidence of pericarditis. TSH within normal limits. cardiology has seen the patient and 2-D echocardiogram showed normal EF and no pericardial effusion. Patient will need stress test as an inpatient or outpatient. Incentive spirometry. Continue to follow closely and further recommendations based on the clinical course. Time with Patient: Greater than 30
[2017-10-01 10:56] LABS: Basophils # (A) 0.1 k/uL (0-0.2); Basophils % (A) 1 %; Eosinophils # (A) 0.1 k/uL (0-0.7); Eosinophils % (A) 1 %; HCT 38.3 % (34.0-46.0); Lymphocytes % (A) 21 %; MCH 29.7 pg (25.0-35.0); MCHC 33.9 g/dL (31.0-37.0); MCV 87.6 fL (80.0-100.0); Mean Platelet Volume 6.9; Monocytes # (A) 0.4 k/uL (0-1.0); Monocytes % (A) 8 %; Neutrophils # (A) 3.1 k/uL (1.3-7.7); Neutrophils % (A) 67 %; Platelet Count 171 k/uL (150-450); RBC 4.37 m/uL (3.80-5.40); RDW 13.7 % (11.5-15.5); WBC 4.6 k/uL (3.8-10.6)
[2017-10-01 11:15] LABS: Calcium 8.5 mg/dL (8.4-10.2); Potassium 4.3 mmol/L (3.5-5.1)
--- NOTE | 2017-10-01 13:35 | XR ---
EXAMINATION TYPE: XR chest 2V DATE OF EXAM: 10/01/2017 COMPARISON: Prior chest 09/29/2017 HISTORY: Fever TECHNIQUE: Frontal and lateral views of the chest are obtained. FINDINGS: There is no pleural effusion or pneumothorax seen. The cardiac silhouette size is stable. Patchy basilar density persists. Kyphosis is present near the thoracic lumbar junction. There are ov erlying cardiac leads. The osseous structures are intact. IMPRESSION: Basilar atelectasis suspected. Follow-up as indicated.
[2017-10-01] MEDS: LEVOFLOXACIN 500 MG TAB PO SCH (16:07)
[2017-10-01 20:22] VITALS: BP 131/83; PULSE 83; TEMP 98.2
== END 2017-10-01 21:30 | disposition home or self-care (01) | DRG 194 ==
LOC: 6SEL 19:26 → OBSVTOIN 09-28 10:56
PROVIDERS: ADMIT Internal Medicine; ATTEND Internal Medicine
DX: J18.9 Pneumonia, unspecified organism (principal); I69.354 Hemiplegia and hemiparesis following cerebral infarction affecting left non-dominant side; J98.11 Atelectasis; E03.9 Hypothyroidism, unspecified; F32.9 Major depressive disorder, single episode, unspecified; F41.9 Anxiety disorder, unspecified; G62.9 Polyneuropathy, unspecified; I10 Essential (primary) hypertension; I25.10 Atherosclerotic heart disease of native coronary artery without angina pectoris; I48.91 Unspecified atrial fibrillation; K21.9 Gastro-esophageal reflux disease without esophagitis; K44.9 Diaphragmatic hernia without obstruction or gangrene; M50.30 Other cervical disc degeneration, unspecified cervical region; Z79.899 Other long term (current) drug therapy; Z90.710 Acquired absence of both cervix and uterus; Z91.14 Patient's other noncompliance with medication regimen; Z79.1 Long term (current) use of non-steroidal anti-inflammatories (NSAID); Z79.890 Hormone replacement therapy; Z79.891 Long term (current) use of opiate analgesic
CPT/HCPCS: 71045; 71046; 72040; 80048; 80061; 82550; 82553; 84443; 84484; 85025; 87040; 87502; 93306; 94760

== ENCOUNTER 2017-12-23 09:40 | Day surgery (SDC) | payer OTHER ==
[2017-12-17 08:58] VITALS: BMI 35.2
[~2017-12-23 09:40] MED LIST: ALPRAZolam 0.25 MG TAB PO PRN; ALPRAZolam 0.5 MG TAB PO PRN; ASPIRIN 325 MG TAB PO ONE; ATORVASTATIN 80 MG TAB PO ONE; NITROGLYCERIN SL TABS 0.4 MG TAB SUBLINGUAL PRN; SODIUM CHLORIDE 0.9% 1,000 ML in EMPTY BAG 1 BAG IV ONE
[2017-12-23 10:48] LABS: Anisocytosis Slight; Basophils % (A) 1 %; Eosinophils # (A) 0.2 k/uL (0-0.7); Eosinophils % (A) 4 %; HCT 34.8 % (34.0-46.0); Hypochromasia Moderate; Lymphocytes # (A) 1.9 k/uL (1.0-4.8); Lymphocytes % (A) 43 %; MCH 28.1 pg (25.0-35.0); MCHC 31.6 g/dL (31.0-37.0); Monocytes # (A) 0.3 k/uL (0-1.0); Monocytes % (A) 7 %; Neutrophils # (A) 1.9 k/uL (1.3-7.7); Neutrophils % (A) 43 %; Platelet Count 176 k/uL (150-450); RDW 16.6 % (11.5-15.5); WBC 4.4 k/uL (3.8-10.6)
[2017-12-23 10:56] VITALS: RESP 16; TEMP 98.5
[2017-12-23 11:13] LABS: Anion Gap 8 mmol/L; Blood Urea Nitrogen 21 mg/dL (7-17); Calcium 8.7 mg/dL (8.4-10.2); Carbon Dioxide 22 mmol/L (22-30); Chloride 110 mmol/L (98-107); Glucose 82 mg/dL (74-99); Potassium 4.5 mmol/L (3.5-5.1); Sodium 140 mmol/L (137-145)
[2017-12-23] MEDS ORDERED: MIDAZOLAM 2 MG/2 ML VIAL IV ONE (12:10)
[2017-12-23] MEDS ORDERED: LIDOCAINE 1% INJ 10MG/ML (20 ML MDV) SQ ONE (12:15)
[2017-12-23] MEDS: VERAPAMIL SYRINGE (5 MG/10 ML) INTRAARTER ONE ×2 (12:16→12:27)
[2017-12-23] MEDS ORDERED: HEPARIN SODIUM 1,000 UN/ML (10ML VL) IV ONE (12:18)
[2017-12-23] MEDS ORDERED: IOPAMIDOL-370 125ML BTL INJ ONE (12:25)
[2017-12-23] MEDS ORDERED: RX INFO: IV CONTRAST WAS GIVEN 1 EACH MISC MISCELLANE PRN (12:36)
[2017-12-23] MEDS ORDERED: SODIUM CHLORIDE 0.9% 1,000 ML IV SCH (12:45)
--- NOTE | 2017-12-23 13:03 | LTR ---
December 23, 2017 Re: Una Taylor Dear Dr. Jose: Ms. 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 I want to thank you for allowing me to participate in her care and please do not hesitate to call if any question or concern. Sincerely, MD IVELISSE Guillaume / ALO: [id number] /
--- NOTE | 2017-12-23 13:09 | CC ---
CARDIAC CATHETERIZATION REPORT DATE OF SERVICE: December 23, 2017 PERFORMING PHYSICIAN: Damon Feliciano MD, top ironer. PROCEDURE PERFORMED: 1. Selective right and left coronary angiogram. 2. Left heart catheterization. INDICATION: This is a pleasant 52-year-old female patient with history of stoke, who was experiencing exertional dyspnea concerning for angina equivalent. She underwent a stress test and that was technically very difficult and because of that and because of her body habitus, a heart catheterization was advised. APPROACH: Right radial artery. COMPLICATION: None. LEVEL OF SEDATION: Moderate with sedation length of 15 minutes. PROCEDURE DESCRIPTION: After obtaining an informed consent, the patient was brought to the cardiac laborer stores. The right radial artery was cannulated using micropuncture technique, the micropuncture wire passed easily then I placed a 6-Danish sheath in the right radial artery. After that, I did selective right and left coronary angiogram using JR4 and JL3.5 catheters. I did perform left heart catheterization using 6-Danish pigtail catheter. The procedure was completed without any complication. SELECTIVE CORONARY ANGIOGRAM: 1. The right coronary artery is a large caliber vessel and it is a dominant vessel. The RCA is angiographically normal. It bifurcates distally into PDA and PLV branches, both are angiographically normal. 2. The left main is angiographically normal. It bifurcates into the left circumflex, and left anterior descending artery. 3. The left circumflex is a large caliber vessel and it is a nondominant vessel. The proximal circumflex is angiographically normal and gives rise into a large OM branch which appeared to be angiographically normal. The mid circumflex is normal and gives rise into a second OM branch which appeared to be angiographically normal and the circumflex continued after that as a small-caliber vessel in the AV groove. 4. The LAD: The proximal LAD is normal and gives rise into the first and second diagonal branches both are angiographically normal. The mid LAD had mild plaque, appeared to be in the range of 20% and seems to be hazy as well. The LAD distally appeared to be angiographically normal. HEMODYNAMICS: The left ventricular end-diastolic pressure was 10 mmHg and no gradient was identified across the aortic valve. 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 POSTPROCEDURE MANAGEMENT: 1. Maximize medical treatment. 2. Follow up with the patient. MMODL / IJN: [id number] /
[2017-12-23 16:44] VITALS: PULSE 62
[2017-12-23 17:26] VITALS: BP 101/62
== END 2017-12-23 17:26 | disposition home or self-care (01) ==
LOC: CATHCVL 09:40
PROVIDERS: ATTEND Internal Medicine Interventional Cardiology
DX: I25.110 Atherosclerotic heart disease of native coronary artery with unstable angina pectoris (principal); I48.0 Paroxysmal atrial fibrillation; E78.5 Hyperlipidemia, unspecified; R94.31 Abnormal electrocardiogram [ECG] [EKG]; Z79.82 Long term (current) use of aspirin; Z79.1 Long term (current) use of non-steroidal anti-inflammatories (NSAID); Z79.890 Hormone replacement therapy; Z79.899 Other long term (current) drug therapy; Z88.0 Allergy status to penicillin
CPT/HCPCS: 93458; 80048; 85025; C1894; J2250; J2001; J1644; Q9967

== ENCOUNTER 2023-02-26 09:32 | Day surgery (SDC) | payer OTHER ==
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
[~2023-02-26 09:32] MED LIST changes: -ALPRAZolam 0.25 MG TAB PO PRN; -ALPRAZolam 0.5 MG TAB PO PRN; -ASPIRIN 325 MG TAB PO ONE; -ATORVASTATIN 80 MG TAB PO ONE; +LACTATED RINGERS 1,000 ML IV SCH; -NITROGLYCERIN SL TABS 0.4 MG TAB SUBLINGUAL PRN; -SODIUM CHLORIDE 0.9% 1,000 ML in EMPTY BAG 1 BAG IV ONE
[2023-02-26 10:13] VITALS: TEMP 97.7
[2023-02-26] MEDS ORDERED: PROPOFOL 10 MG/ML 20 ML VIAL IV ONE (10:31)
[2023-02-26] MEDS ORDERED: LIDOCAINE 1% INJ 10MG/ML (20 ML MDV) ONE (10:31)
--- NOTE | 2023-02-26 10:52 | P.PCN ---
Date of Procedure: 02/26/23 Description of Procedure: PREOPERATIVE DIAGNOSIS: Gastroesophageal reflux disease. Morbid obesity. POSTOPERATIVE DIAGNOSIS: Gastroesophageal reflux disease. Morbid obesity. Gastritis. Diaphragmatic hiatal hernia OPERATION: Esophagogastroduodenoscopy with biopsies along the esophagus, antrum and duodenum SURGEON: Maryuri Elizabeth MD ANESTHESIA: MAC. INDICATIONS: The patient is a 58-year-old female who presents with reflux disease. Benefits and risks of the procedure were described. Informed consent was obtained. DESCRIPTION: The patient was brought into the endoscopy suite and laid in the left lateral decubitus position. An Olympus gastroscope was passed along the posterior oropharynx down to the distal esophagus where the squamocolumnar junction was encountered at 35 cm from the incisors. The stomach was entered and bile reflux was found. Additional findings are listed below. Biopsies with cold forceps were obtained of the antrum. The first through third portion of the duodenum was examined. Retroflexion of the scope confirmed Hill grade 4 lower esophageal valve. The squamocolumnar junction demonstrated LA grade B erosive esophagitis. The stomach was desufflated. The patient tolerated the procedure well. FINDINGS: Squamocolumnar junction 35 cm from the incisors. Diaphragmatic hiatus at 40 cm. Hiatal hernia, 5 cm Hill grade 4 lower esophageal valve. LA grade C erosive esophagitis. Biopsies obtained Biopsies obtained of the duodenum. Chronic gastritis with biopsies obtained. Active reflux of fluid in the esophagus suctioned RECOMMENDATIONS: Recommend antireflux operation. Plan - Discharge Summary Discharge Rx Participant: No New Discharge Prescriptions: Continue Acetaminophen-Codeine 300-30mg [Tylenol w/codeine #3] 1 tab PO BID PRN PRN Reason: Mild To Moderate Pain Escitalopram [Lexapro] 10 mg PO DAILY Esomeprazole Magnesium [NexIUM] 40 mg PO DAILY Aspirin 81 mg PO DAILY #30 chew Ibuprofen [Motrin] 800 mg PO DAILY Valsartan 1 tab PO DAILY amLODIPine 10 mg PO DAILY Discharge Medication List Acetaminophen-Codeine 300-30mg [Tylenol w/codeine #3] 1 tab PO BID PRN 09/26/17 [History] Escitalopram [Lexapro] 10 mg PO DAILY 09/26/17 [History] Esomeprazole Magnesium [NexIUM] 40 mg PO DAILY 09/26/17 [History] Aspirin 81 mg PO DAILY #30 chew 10/01/17 [Rx] Ibuprofen [Motrin] 800 mg PO DAILY 12/17/17 [History] Valsartan 1 tab PO DAILY 02/26/23 [History] amLODIPine 10 mg PO DAILY 02/26/23 [History] Follow up Appointment(s)/Referral(s): Maryuri Elizabeth MD [STAFF PHYSICIAN] - 03/17/23 11:30 am Patient Instructions/Handouts: Hiatal Hernia (DC) Discharge Disposition: HOME SELF-CARE
[2023-02-26 11:26] VITALS: BP 122/82; PULSE 62; RESP 16
== END 2023-02-26 11:23 | disposition home or self-care (01) ==
LOC: ORWHC2ENDO 09:32
PROVIDERS: ATTEND Surgery Plastic and Reconstructive Surgery
DX: K21.00 Gastro-esophageal reflux disease with esophagitis, without bleeding (principal); K29.50 Unspecified chronic gastritis without bleeding; E66.01 Morbid (severe) obesity due to excess calories; K44.9 Diaphragmatic hernia without obstruction or gangrene; J45.909 Unspecified asthma, uncomplicated; I10 Essential (primary) hypertension; E03.9 Hypothyroidism, unspecified; E78.5 Hyperlipidemia, unspecified; Z79.1 Long term (current) use of non-steroidal anti-inflammatories (NSAID); Z79.82 Long term (current) use of aspirin; Z79.899 Other long term (current) drug therapy; Z88.0 Allergy status to penicillin; Z91.048 Other nonmedicinal substance allergy status; Z68.37 Body mass index [BMI] 37.0-37.9, adult
CPT/HCPCS: 88305; 43239; J2001; J2704

== ENCOUNTER → 2023-03-12 | Outpatient (CLI) | payer OTHER ==
--- NOTE | 2023-03-12 11:44 | FL ---
EXAMINATION TYPE: FL barium swallow DATE OF EXAM: 03/12/2023 CLINICAL INDICATION: 58-year-old female K44.9, diaphragmatic hernia, gastroesophageal reflux COMPARISON: None Total Fluoroscopy Time: 2 minutes 25 seconds DAP - 668.54 mGycm2 61 images obtained. FINDINGS: The swallowing mechanism is normal and hypopharyngeal anatomy is preserved. The cervical and thoracic portions have a normal course and caliber. However, there is a moderate siz ed, fixed hiatal hernia with a third of the stomach located in the lower chest. The mucosa is normal and no persistent filling defect is encountered. No abnormal narrowing. Valsalva and positional maneuvers resulted in severe gastroesophageal reflux to the thoracic inlet. T here are ensuing moderate tertiary peristaltic contractions. IMPRESSION: 1. Moderate-sized fixed hiatal hernia with severe gastroesophageal reflux. A third of the stomach is located in the lower chest. 2. Mild esophageal dysmotility.
== END | disposition home or self-care (01) ==
LOC: RADUSWWP 10:38
PROVIDERS: ATTEND Surgery Plastic and Reconstructive Surgery
DX: K21.9 Gastro-esophageal reflux disease without esophagitis (principal); K44.9 Diaphragmatic hernia without obstruction or gangrene; K22.4 Dyskinesia of esophagus
CPT/HCPCS: 74220

== ENCOUNTER 2023-07-24 06:14 | Day surgery (SDC) | payer OTHER ==
[~2023-07-24 06:14] MED LIST changes: +HEPARIN SODIUM,PORCINE 5,000 UNIT/ML 1 ML VIAL SQ PRN; -LACTATED RINGERS 1,000 ML IV SCH; +LIDOCAINE 1% (10MG/ML) FOR IV START INTRADERMA PRN; +ONDANSETRON 4 MG/2 ML VIAL IVP PRN; +metroNIDAZOLE-NS PMX 500 MG in SALINE 1 100ML.BAG IVPB PRN
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
[2023-07-24] MEDS ORDERED: MIDAZOLAM 2 MG/2 ML VIAL IV PRN (07:00)
[2023-07-24 07:18] LABS: Glucose,Whole Blood 79 mg/dL (70-110)
[2023-07-24] MEDS: LACTATED RINGERS 1,000 ML IV SCH (07:27)
[2023-07-24] MEDS: ONDANSETRON 4 MG/2 ML VIAL IVP ONE ×2 (07:28→15:45)
[2023-07-24] MEDS ORDERED: CHLORHEXIDINE GLUCONATE 15 ML CUP MUCOUS MEM ONE (07:29)
[2023-07-24] MEDS ORDERED: PROPOFOL 10 MG/ML 20 ML VIAL IV ONE (07:29)
[2023-07-24] MEDS ORDERED: LIDOCAINE 1% INJ 10MG/ML (20 ML MDV) ONE (07:29)
[2023-07-24] MEDS: FAMOTIDINE 20 MG/2 ML VIAL IVP ONE (07:29)
[2023-07-24] MEDS ORDERED: MIDAZOLAM 2 MG/2 ML VIAL ONE (07:29)
[2023-07-24] MEDS ORDERED: NEOSTIGMINE 1 MG/ML 10 ML VIAL ONE (07:29)
[2023-07-24] MEDS ORDERED: GLYCOPYRROLATE 0.2 MG/ML 2 ML VIAL ONE (07:29)
[2023-07-24] MEDS ORDERED: SUCCINYLCHOLINE CHLORIDE 200 MG/10 ML VIAL IV ONE (07:29)
[2023-07-24] MEDS ORDERED: PHENYLEPHRINE 10 MG/ML VIAL ONE (07:29)
[2023-07-24] MEDS ORDERED: ROCURONIUM 10 MG/ML (5 ML VIAL) IV ONE (07:29)
[2023-07-24] MEDS ORDERED: fentaNYL (PF) 50 MCG/ML 2 ML AMP ONE (07:29)
[2023-07-24] MEDS: PANTOPRAZOLE 40 MG/10 ML VIAL IVP STA (07:30)
[2023-07-24] MEDS: DEXAMETHASONE SOD PHOSPHATE 4 MG/ML 1 ML VIAL IVP ONE (07:32)
[2023-07-24] MEDS: HEPARIN SODIUM,PORCINE 5,000 UNIT/ML 1 ML VIAL SQ ONE (07:32)
[2023-07-24] MEDS: CHLORHEXIDINE GLUCONATE 15 ML CUP MUCOUS MEM STA (07:33)
[2023-07-24] MEDS: ACETAMINOPHEN TAB 500 MG TAB PO PRN (07:34)
[2023-07-24 07:37] LABS: Basophils # (A) 0.1 k/uL (0-0.2); Basophils % (A) 2 %; Eosinophils # (A) 0.2 k/uL (0-0.7); Eosinophils % (A) 3 %; Lymphocytes # (A) 1.2 k/uL (1.0-4.8); Lymphocytes % (A) 24 %; MCH 29.5 pg (25.0-35.0); MCHC 31.9 g/dL (31.0-37.0); MCV 92.5 fL (80.0-100.0); Mean Platelet Volume 7.8; Monocytes # (A) 0.5 k/uL (0-1.0); Monocytes % (A) 10 %; Neutrophils % (A) 59 %; Platelet Count 281 k/uL (150-450); RBC 4.75 m/uL (3.80-5.40); RDW 14.6 % (11.5-15.5); WBC 5.2 k/uL (3.8-10.6)
[2023-07-24 07:45] LABS: ALT 30 U/L (4-34); AST 34 U/L (14-36); African American GFR (CKD) >90 (>60 ml/min/1.73 sqM); Albumin 3.7 g/dL (3.5-5.0); Alkaline Phosphatase 75 U/L (38-126); Anion Gap 8 mmol/L; Blood Urea Nitrogen 26 mg/dL (7-17); Calcium 9.2 mg/dL (8.4-10.2); Carbon Dioxide 22 mmol/L (22-30); Chloride 110 mmol/L (98-107); Glucose 81 mg/dL (74-99); Non-African American GFR(CKD) >90 (>60 ml/min/1.73 sqM); Potassium 3.7 mmol/L (3.5-5.1); Sodium 140 mmol/L (137-145); Total Bilirubin 0.7 mg/dL (0.2-1.3); Total Protein 6.8 g/dL (6.3-8.2)
[2023-07-24] MEDS: LIDOCAINE 1%-EPI 1:100,000 20 ML VIAL SQ ONE (08:06)
[2023-07-24] MEDS: LACTATED RINGERS 1,000 ML IV ONE (09:03)
[2023-07-24] MEDS ORDERED: HYDROmorphone 1 MG/ML 1 ML SYRINGE IVP PRN (10:03)
[2023-07-24] MEDS: HYDROmorphone 0.5 MG/0.5 ML SYRINGE IVP PRN (10:08)
--- NOTE | 2023-07-24 10:10 | P.OP ---
Date of Procedure: 07/24/23 Description of Procedure: SURGEON: J CARLOS SPANN MD PREOPERATIVE DIAGNOSES: 1. Symptomatic paraesophageal diaphragmatic hiatal hernia. 2. Gastroesophageal reflux disease. 3. Hypertensive heart disease 4. Generalized anxiety disorder 5. Obesity due to excess calories BMI 34.6 POSTOPERATIVE DIAGNOSES: 1. Paraesophageal midline diaphragmatic hernia, 7 cm, without incarceration. 2. Gastroesophageal reflux disease. 3. Hypertensive heart disease 4. Generalized anxiety disorder 5. Esophageal dysmotility with ineffective esophageal motility OPERATION: 1. Robotic-assisted da Katehrin Xi laparoscopic repair of incarcerated paraesophageal hiatal hernia, 5 x 7 cm, with [place] Biopatch A 8 x 8 cm. 2. Intraoperative esophagogastroduodenoscopy 3. Placement of 56-[place] bougie for esophageal dysmotility ANESTHESIA: General with local anesthetic. ESTIMATED BLOOD LOSS: 5 mL SPECIMENS REMOVED: None COMPLICATIONS: None. Condition: stable Disposition: floor FINDINGS: 1. Midline incarcerated paraesophageal hiatal hernia 7 x 5 cm 2. Intraoperative upper endoscopy confirms complete closure of hiatal hernia from Hill grade 4 to Hill grade 1 3. Intraesophageal length over 3 cm INDICATIONS: The patient is a 58-year-old female who presents with gastroesophageal reflux disease poorly controlled despite medications, and a symptomatic diaphragmatic hiatal hernia. Preoperative workup including upper endoscopy demonstrated a sliding hiatal hernia. Given the severity of sy mptoms, the patient had elected for surgical intervention. Benefits and risks including bleeding, infection, recurrence, dysphagia, injury to the lung, need for further surgery was described at length. Informed consent was obtained. DESCRIPTION: The patient was brought into the operating room and placed in supine position. Preoperatively the patient had received heparin subcutaneously for DVT pr ophylaxis. After general induction, the abdomen was prepped and draped in standard sterile fashion. The patient had previously voided prior to coming to the operating room. [place]an draping was placed along the abdomen. A timeout protocol was confirmed with the surgical team, for which the patient's name, procedure to be performed including DVT prophylaxis with bilateral SCDs, and preoperative antibiotics were also confirmed. A robotic da Katherin Xi system was prepped and primed. At 12 cm from the xiphoid to just below the umbilicus, proposed port sites were marked with indelible marker along the left axillary line, left mid-clavicular line with each ports were marked 10 cm from each other. A 5 mm 0 degrees laparoscopic trocar entry was performed along the left upper quadrant. The abdomen was insufflated to 15 mmHg pressure was tolerated well. Diagnostic laparoscopy demonstrated no injury to bowel, viscera, or mesentery. No injury had occurred to the small bowel or viscera. The liver was smooth consistent with two-week high-protein low-carb diet. Previous trochar sites from cholecystectomy were used. Next, one 8 mm robotic port was placed along the right upper abdomen. An 8-mm port was were placed along the right lateral lateral abdominal wall. The camera 8-mm port was maintained along the epigastrium. Another 12 mm port was placed along the left upper abdominal wall after exchanging the 5 mm port. Please note that the ports were placed at least 20 cm away from the target anatomy. Care was taken to check that each robotic arm were safely away from collision with the bed or the patient. At the epigastrium, a medium sized Malina liver retractor was placed under direct visualization with the Iron Warp Preparer placed under the right shoulder of the patient. All robotic arms were used. The patient was repositioned in reverse Trendelenburg position at 25-degrees after lowering the bed. The robot was docked above the right side of the patient. Using a grasper for arm 3, a grasper for arm 1, including vessel sealer for arm 2, the robotic system was docked and primed as described. Instruments were interchanged by the under water assistant. I had sat at the console. The gastrohepatic ligament was cleaved using a vessel sealer. Next, the phrenoesophageal ligament was mobilized and the distal esophagus was mobilized circumferentially. The left and right cru ra was identified. Circumferentially, the hernia sac was excised and brought into the peritoneal cavity. Moderate dissection into the mediastinum was performed to release the esophagus into the abdominal cavity. The paraesophageal hiatal hernia sac was also incised and divided from the esophagus. Care was taken to avoid any gastrotomy. The measured defect was consistent with 7 cm axial length and 5 cm in width. After dissection, the distal esophagus of 3+ cm was brought into the abdominal cavity. Once the hiatus and crura was dissected, 2-0 VLOC nonabsorbable suture was placed to reapproximate the diaphragmatic hiatus posteriorly and anteriorly. To buttress the repair, a [place] Biopatch A was prepared along the back table and cut in half of a bennett-hole fashion as to reinforce the repair as an underlay anteriorly and posteriorly. The mesh was placed along the crural repair and tagged using horizontal mattress sutures using 2-0 VLOC. I went to the head of the bed to perform intraoperative esophagogastroduodenoscopy and placement of a 56Fr bougie. The bougie was passed along the posterior oropharynx into the stomach to address pre-existing esophageal dysmotility for 2 minutes then removed. An Olympus gastroscope was passed through posterior oropharynx. Retroflexion of the scope confirmed a Hill grade 1 lower esophageal valve. The stomach had been desufflated. No evidence of leaks were found of the esophagus or stomach. The GI tract with desufflated This concluded the endoscopic portion of the case. The robot was undocked from the patient. I re-scrubbed into the case. All instruments and pneumoperitoneum and specimens were evacuated from the abdominal cavity. Incisions were reapproximated using 4-0 Monocryl in an interrupted subcuticular fashion. Liquid glue was applied to the skin. Local anesthetic was infiltrated in all wounds for postop analgesia. At the end of the procedure, needle, sponge, and instrument count was verified correct by the surgical product sales consultant. The patient had tolerated the procedure well and was taken to the postanesthesia unit in stable condition.
--- NOTE | 2023-07-24 15:11 | FL ---
EXAMINATION TYPE: FL esophagus cervic/pharynx DATE OF EXAM: 07/24/2023 2:51 PM CLINICAL INDICATION:Female, 58 years old with history of rule out leak/obstruction; COMPARISON: 03/12/2023 TECHNIQUE: Limited single contrast UGI study is performed with Isovue-370. A total of 20 seconds of f luoroscopic time was utilized during procedure and 34 images obtained. DAP: [id number] [id number] FINDINGS: Post hiatal hernia repair changes. No extravasation of contrast identified. No evidence of mass or ulcer disease. Contrast extends to the gastroesophageal junction. IMPRESSION: Postsurgical changes without evidence of contrast extravasation.
[2023-07-24 15:28] VITALS: BMI 34.5
[2023-07-24] MEDS: DEXAMETHASONE SOD PHOSPHATE 4 MG/ML 1 ML VIAL IV ONE (15:45)
[2023-07-24] MEDS: D5-0.45% NACL WITH KCL 20MEQ/L 1,000 ML IV SCH (16:31)
[2023-07-24] MEDS: HEPARIN SODIUM,PORCINE 5,000 UNIT/ML 1 ML VIAL SQ SCH (21:42)
--- NOTE | 2023-07-25 04:10 | P.PN ---
Progress Note - Text Progress Note Date: 07/25/23 Patient seen and evaluated. She is tolerating liquids. Juan diet reiterated. Esophagram negative for leaks or obstruction. Due to high preoperative risk, anticipated disposition in 24 hours. Admission for observation advised.
[2023-07-25 08:25] VITALS: BP 129/76; PULSE 68; RESP 16; TEMP 98.4
== END 2023-07-25 12:37 | disposition home or self-care (01) ==
LOC: OR 06:14 → 4SSUR 09:31 → OR 07-25 12:37
PROVIDERS: ATTEND Surgery Plastic and Reconstructive Surgery
DX: K44.0 Diaphragmatic hernia with obstruction, without gangrene (principal); F41.1 Generalized anxiety disorder; I11.9 Hypertensive heart disease without heart failure; I48.91 Unspecified atrial fibrillation; J45.909 Unspecified asthma, uncomplicated; K21.9 Gastro-esophageal reflux disease without esophagitis; K22.4 Dyskinesia of esophagus; Z88.0 Allergy status to penicillin; Z90.710 Acquired absence of both cervix and uterus
CPT/HCPCS: 43282; S2900; 74210; 80053; 85025